=== PATIENT | male | born 1960 | race Caucasian/White ===

== ENCOUNTER 2024-01-21 14:38 | Outpatient (AMB) | payer OTHER, SELFPAY ==
--- NOTE | 2024-01-21 15:12 | MHC.PC.OV ---
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 All meds but the Eliquis are needing refilled. 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 Mary Longoria Last office visit/CPE: 6 mos. CPE Almost a yr Acute issue(s): episode of a-fib and workup is still under way Cardiology at [facility] PMHx: PreDM, HTN, HLD, Kidney stones SurgHx: Renal Stents for renal stones. FHx: Dad: CAD [place]. Mom: Brain Aneurysm. Sister: Breast CA SocHx: Quit 30 yrs ago. EtOH 2 dr 2 x a week. MJ daily. 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 Cognitive needs: No Hearing needs: No Vision needs: Yes (prescription glasses) Questionnaire Thrive Questionnaire Date Thrive assessed: 01/21/24 I am a: Patient What is your living situation today?: I have a steady place to live Within the past 12 months, did the food you bought not last and you didn't have the money to get more?: Never true Within the past 12 months, did you worry whether your food would run out before you got money to buy more?: Never true Do you have trouble paying for medicines?: No Do you have trouble getting transportation to medical appointments?: No Do you have trouble paying your heating and electricity bill?: No Do you have trouble taking care of your child, family member or friend?: No Do you have trouble with day-to-day activities such as bathing, preparing meals, shopping, managing finances, etc.?: No Are you currently unemployed and looking for a job?: No Are you interested in more education?: No THRIVE Score: 0 AUDIT C Alcohol Use Questionnaire (AUDIT-C) 1. How often do you have a drink containing alcohol?: 2-3 times a week 2. How many drinks containing alcohol do you have on a typical day when you are drinking?: 1 or 2 3. How often do you have six or more drinks on one occasion?: Never Total Score: 3 KATE-7 AMB Questionnaire KATE-7 Date KATE - 7 assessed: 01/21/24 Feeling nervous, anxious, or on edge: 0 = Not at all Not being able to stop or control worryin = Not at all Worrying too much about different things: 0 = Not at all Trouble relaxin = Not at all Being so restless that it is hard to sit still: 0 = Not at all Becoming easily annoyed or irritable: 0 = Not at all Feeling afraid as if something awful might happen: 0 = Not at all Total KATE-7 score (0-4 normal; 5-9 mild; 10-14 moderate; 15-21 severe): 0 Source: Developed by Drs. Meir Barrios, Guillermina March, Sunil Mendez and colleagues, with an educational dat from [employer]. Review of Systems Const Denies chills, Denies fatigue, Denies fever(s), Denies headache(s) and Denies weakness ENT Denies dizziness and Denies headache(s) Card Denies chest pain, Denies lightheadedness, Denies dyspnea and Denies other (Palpitations) Resp Denies cough, Denies dyspnea, Denies wheezing and Denies other ( shortness of breath) Musc Denies numbness and Denies tingling Neuro Denies dizziness, Denies headache(s), Denies numbness, Denies tingling, Denies paresthesias and Denies weakness Psych Denies anxiety and Denies depression Endo Denies fatigue Aller/Immun Denies wheezing Physical exam (Primary Care) Vital Signs: Last Vital Signs Pulse 69 01/21/24 15:14 BP 130/72 01/21/24 15:14 Pulse Ox 97 01/21/24 15:14 Oxygen Delivery Method Room Air 01/21/24 15:14 BMI result Body Mass Index 37.8 Tobacco/Smoking Status: Tobacco use Status Tobacco use date assessed 01/21/24 01/21/24 15:37 Patient Tobacco Use Status Former Tobacco user 01/21/24 15:37 e-Cigarette/Vaping Use Never Used 01/21/24 15:37 Thrive Assessment: Date of Thrive Assessment Date Thrive assessed 01/21/24 01/21/24 15:37 Const General: no acute distress and well developed Nutritional Appearance: well nourished Orientation/consciousness: patient oriented x3 HENMT Head: Yes normocephalic and Yes atraumatic Eyes General: appearance normal, both eyes and all related structures Pupils: Equal, round and reactive pupils present EOM: EOMs intact bilaterally Resp Effort & Inspection: normal respiratory effort Auscultation: clear to auscultation bilaterally Cardio Rate: regular rate Rhythm: regular rhythm Heart sounds: S1 normal heart sound present, S2 normal heart sound present, no gallops, no murmurs and no rubs Neuro General: patient oriented x3 and gait normal Cranial nerves: Yes Equal, round and reactive pupils present Psych Affect: normal affect Assessment and Plan Assessment & Plan (1) Hypertension: Code(s): I10 - Essential (primary) hypertension Plan: Blood?pressure?is?controlled.??Goal?is?less?than?140/90 Continue?current?medication?regimen (2) Atrial fibrillation: Code(s): I48.91 - Unspecified atrial fibrillation Plan: Episode?of?atrial?fibrillation.??Patient?just?turned?in?his?Holter?monitor?test?with?his?spray painter?at?[facility]?yesterday. Results?pending Currently?anticoagulated?with?Eliquis?but?he?is?waiting?to?see?if?he?needs?to?remain?on?this. (3) Pre-diabetes: Code(s): R73.03 - Prediabetes Plan: Check?A1c?with?labs (4) High cholesterol: Code(s): E78.00 - Pure hypercholesterolemia, unspecified Plan: Check?lipid Continue?pravastatin (5) Laboratory exam ordered as part of routine general medical examination: Code(s): Z00.00 - Encounter for general adult medical examination without abnormal findings Plan: Check?labs Orders: Orders Complete Blood Count Auto Diff Today Z00.00 - Encounter for general adult medical examination without abnormal findings Lipid Panel Today Z00.00 - Encounter for general adult medical examination without abnormal findings Microalbumin, Random (w Creat) Today I10 - Essential (primary) hypertension TSH reflex Free T4 Today Z00.00 - Encounter for general adult medical examination without abnormal findings Hemoglobin A1c Today R73.01 - Impaired fasting glucose Comprehensive [place]. Panel Fast Today Z00.00 - Encounter for general adult medical examination without abnormal findings Prostate Specific Antigen Scr Today Z12.5 - Encounter for screening for malignant neoplasm of prostate UA and rflx microscopic Today Z00.00 - Encounter for general adult medical examination without abnormal findings Medications: New pravastatin 80 mg PO DAILY 90 days 90 tabs 2RF amlodipine 10 mg PO DAILY 90 days 90 tabs 2RF lisinopril 40 mg PO DAILY 90 days 90 tabs 2RF omeprazole 20 mg PO DAILY 90 days 90 caps 2RF Coding Level of Care Code New Pt Level 3 (18227) Diagnoses Hypertension I10 Atrial fibrillation I48.91 Pre-diabetes R73.03 High cholesterol E78.00 Laboratory exam ordered as part of routine general medical examination Z00.00
[2024-01-21 15:14] VITALS: BP 130/72; PULSE 69; O2SAT 97; BMI 37.8
== END 2024-01-21 16:10 | disposition home or self-care (01) ==
PROVIDERS: PCP Family Medicine; Visit Provider Family Medicine
DX: I10 Essential (primary) hypertension (principal); I48.91 Unspecified atrial fibrillation; R73.03 Prediabetes; E78.00 Pure hypercholesterolemia, unspecified; Z00.00 Encounter for general adult medical examination without abnormal findings
CPT/HCPCS: 99203

== ENCOUNTER 2024-01-22 10:04 | Outpatient (REF) | payer SELFPAY ==
[2024-01-22 11:35] LABS: Appearance Urine Clear; Color Urine Dark Yellow; Glucose Urine UA Negative (Negative); Leukocyte Esterase Urine Trace (Negative); Nitrite Urine Negative (Negative); PH 5.5 (5.0-9.0); Specific Gravity - Urine 1.025 (1.005-1.025); UMIC TRIGGER UA YES; Urine Blood Trace (Negative); Urine Ketones Negative (Negative); Urine Protein 100 (2+) mg/dL (Neg-Trace)
[2024-01-22 11:40] LABS: Bacteria Urine None Seen (None Seen); Squamous Epithelial Cell Urine 0-2 /HPF (0-2); WBC Urine 0-5 /HPF (0-5)
[2024-01-22 11:50] LABS: MANUAL DIFF FLAG NO
[2024-01-22 12:06] LABS: Basophils Absolute Auto 0.1 X10*3/uL (0.0-0.2); Eosinophils Absolute Auto 0.3 X10*3/uL (0.0-0.4); Eosinophils Percent Auto 2.6 % (0-4); Hematocrit 41.5 % (42.0-52.0); Hemoglobin 13.8 g/dl (14.0-18.0); Imm Gran Abs Auto 0.04 X10*3/uL (0.00-0.03); Imm Gran Pct Auto 0.4 % (0.0-0.4); Lymphocytes Absolute Auto 1.9 X10*3/uL (1.2-4.9); Lymphocytes Percent Auto 18.7 % (20-40); Mean Corpuscular HGB Conc 33.3 g/dl (31.0-36.0); Mean Corpuscular Hemoglobin 28.4 pg (27.0-33.0); Mean Corpuscular Volume 85.4 fL (80.0-98.0); Mean Platelet Volume 11.5 fL (9.4-12.4); Monocytes Absolute Auto 0.8 X10*3/uL (0.1-1.2); Monocytes Percent Auto 7.8 % (2-11); Neutrophils Absolute Auto 7.2 x10*3/uL (2.0-8.3); Neutrophils Percent Auto 69.5 % (45-73); Platelet Count 306 X10*3/uL (160-400); Red Blood Count 4.86 X10*6/uL (4.60-5.80); Red Cell Distribution Width 12.5 % (11.0-16.0); White Blood Count 10.3 X10*3/uL (4.8-10.8)
[2024-01-22 12:23] LABS: Estimated Average Glucose 151 mg/dL; Hemoglobin A1c % 6.9 % (<6.0)
[2024-01-22 12:31] LABS: Prostate Specific Antigen Scr 0.32 ng/mL (<0.05-4.0)
[2024-01-22 12:32] LABS: Creatinine Urine 378.62 mg/dL; Microalbum/Creatinine Ratio Ur 123.6 ug/mg cr (<30)
[2024-01-22 12:47] LABS: Alanine Aminotransferase 48 U/L (0-40); Albumin Level 4.8 g/dL (3.5-5.0); Alkaline Phosphatase 61 U/L (39-117); Anion Gap 18 (12-20); Aspartate Amino Transferase 34 U/L (5-37); Bilirubin Total 0.7 mg/dL (0.0-1.0); Blood Urea Nitrogen 25 mg/dL (9-16); Calcium 9.9 mg/dL (8.4-10.2); Carbon Dioxide 23 mmol/L (22-29); Chloride 103 mmol/L (96-108); Cholesterol 188 mg/dL (<200); Estimated Glomerular Filt Rate > 60; Glucose Fasting 124 mg/dL (60-99); HDL Cholesterol 40 mg/dL (>40); LDL Cholesterol Calculated 87 mg/dL (<100); Potassium 4.1 mmol/L (3.3-5.1); Sodium 140 mmol/L (135-145); Total Protein 8.3 g/dL (6.5-8.0); Triglycerides 309 mg/dL (<150)
[2024-01-22 12:56] LABS: TSH reflex Free T4 0.71 uIU/mL (0.32-4.0)
== END 2024-01-22 10:05 | disposition home or self-care (01) ==
LOC: HO.WFDLDS 10:04
PROVIDERS: Visit Provider Family Medicine
DX: Z00.00 Encounter for general adult medical examination without abnormal findings (principal); Z12.5 Encounter for screening for malignant neoplasm of prostate; R73.01 Impaired fasting glucose; I10 Essential (primary) hypertension
CPT/HCPCS: 36415; 80053; 80061; 81001; 82043; 82570; 83036; 84153; 84443; 85025

== ENCOUNTER 2024-03-17 13:38 | Outpatient (AMB) | payer OTHER, SELFPAY ==
--- NOTE | 2024-03-17 14:13 | A.OFFPC_ITS ---
Vital Signs 03/17/24 14:18 Height 5 ft 6.34 in Weight 228 lb BMI 36.4 BP 108/72 Blood Pressure Location Rt brachial Position Sitting Respiration 16 Pulse 77 Pulse Source Pulse Oximeter Temp 98.1 F Temp Source Oral Pulse Oximetry (%) 96 Oxygen Delivery Method Room Air Intake Visit Reasons: CPE with f/u labs and health maint. 30 mins Intake Note: Physical. Lab results. 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 Requesting medication for ED, believes he was taking Viagra. Allergies No Known Allergies Allergy (Verified 03/17/24 14:13) Medication List - Last Reconciled 03/17/24 by Raúl Valero MD amlodipine 10 mg PO DAILY 90 days lisinopril 40 mg PO DAILY 90 days omeprazole 20 mg PO DAILY 90 days pravastatin 80 mg PO DAILY 90 days Tobacco use date assessed: 03/17/24 Dental Screening Dental Screen Date: 03/17/24 Did you have a dental visit in the last 12 months?: Yes Did you have a dental problem in the last 6 months where you did not have access to dental care?: No Was dental information given to patient?: Patient has dentist HPI CPE with f/u labs and health maint. 30 mins HPI Details 63 y/o male presents for a CPE with f/u labs and health maintenance. Labs were drawn 01/22/24. Reviewed labs with pt. Mild anemia. He denies any blood in stools/nose bleeds. Elevated fasting glucose of 124 and A1c 6.9% - diabetes range. Elevated ALT of 48. Triglycerides 309. TC 188. LDL 87. HDL 40. He is on pravastatin 80mg daily. Blood pressure today 108/72, 77p. He is on amlodipine 10mg, lisinopril 40mg daily. 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 1. Little interest or pleasure in doing things: not at all 2. Feeling down, depressed, or hopeless: not at all 3. Trouble falling or staying asleep, or sleeping too much: several days 4. Feeling tired or having little energy: nearly every day 5. Poor appetite or overeating: several days 6. Feeling bad about yourself - or that you are a failure or have let yourself or your family down: not at all 7. Trouble concentrating on things, such as reading the newspaper or watching television: not at all 8. Moving or speaking so slowly that other people could have noticed. Or the opposite - being so fidgety or restless that you have been moving around a lot more than usual: not at all 9. Thoughts that you would be better off or of hurting yourself in some way: not at all Total score: 5 Depression Screening Interpretation: Positive Depression Screening Done: Yes [id number] - PHQ-9 Billing: Yes Source: Developed by Drs. Meir Barrios, Guillermina March, Sunil Mendez and colleagues, with an educational dat from [employer]. Thrive Questionnaire Date Thrive assessed: 01/21/24 AUDIT C Alcohol Use Questionnaire (AUDIT-C) 1. How often do you have a drink containing alcohol?: 2-3 times a week 2. How many drinks containing alcohol do you have on a typical day when you are drinking?: 1 or 2 3. How often do you have six or more drinks on one occasion?: Never Total Score: 3 KATE-7 AMB Questionnaire KATE-7 Date KATE - 7 assessed: 03/17/24 Feeling nervous, anxious, or on edge: 0 = Not at all Not being able to stop or control worryin = Not at all Worrying too much about different things: 0 = Not at all Trouble relaxin = Not at all Being so restless that it is hard to sit still: 0 = Not at all Becoming easily annoyed or irritable: 1 = Several days Feeling afraid as if something awful might happen: 0 = Not at all Total KATE-7 score (0-4 normal; 5-9 mild; 10-14 moderate; 15-21 severe): 1 Source: Developed by Drs. Meir LGuillermina Bernstein Kurt Kroenke and colleagues, with an educational dat from [employer]. KATE-7 Assessment Billing KATE-7 Assessment Tool: KATE-7 Assessment 53379 Physical exam (Primary Care) Vital Signs: Last Vital Signs Temp 98.1 F 03/17/24 14:18 Pulse 77 03/17/24 14:18 Resp 16 03/17/24 14:18 BP 108/72 03/17/24 14:18 Pulse Ox 96 03/17/24 14:18 Oxygen Delivery Method Room Air 03/17/24 14:18 BMI result Body Mass Index 36.4 Tobacco/Smoking Status: Tobacco use Status Tobacco use date assessed 03/17/24 03/17/24 14:21 Patient Tobacco Use Status Former Tobacco user 03/17/24 14:21 e-Cigarette/Vaping Use Never Used 03/17/24 14:21 PHQ-9: PHQ-9 Score PHQ-9: Total score 5 03/17/24 14:35 Depression Screening Interpretation: Positive Thrive Assessment: Date of Thrive Assessment Date Thrive assessed 01/21/24 03/17/24 14:21 Assessment and Plan Assessment & Plan (1) Adult general medical exam: Code(s): Z00.00 - Encounter for general adult medical examination without abnormal findings Plan: 63-year-old?male?presents?for?physical?exam (2) Diabetes: Code(s): E11.9 - Type 2 diabetes mellitus without complications Plan: A1c?6.9%.??Patient?also?has?significant?microalbuminuria Will?start?metformin Referred?to?nurse?navigator?for?diabetic?teaching Referred?to?ophthalmology?for?diabetic?retinal?exam (3) Mild anemia: Code(s): D64.9 - Anemia, unspecified Plan: Mild.??Repeat?CBC?with?next?blood?draw (4) Hypertension: Code(s): I10 - Essential (primary) hypertension Plan: Blood?pressure?is?controlled.??Goal?is?less?than?140/90 Continue?current?medication (5) Hyperlipidemia: Code(s): E78.5 - Hyperlipidemia, unspecified Plan: Triglycerides?are?high?and?likely?secondary?to?high?blood?sugars Should?improve?with?lifestyle?changes?and?control?of?blood?sugar (6) Erectile dysfunction: Code(s): N52.9 - Male erectile dysfunction, unspecified Plan: Patient?has?used?sildenafil?in?the?past Still?has?some?at?home Will?put?on?med?list?and?he?call?for?refills (7) Microalbuminuria: Code(s): R80.9 - Proteinuria, unspecified Plan: He?is?on?lisinopril Will?work?at?better?blood?sugar?control?with?metformin?and?lifestyle?markos nges;?diabetic?teaching (8) Elevated liver enzymes: Code(s): R74.8 - Abnormal levels of other serum enzymes Plan: Will?repeat?with?next?blood?draw (9) Screening for colon cancer: Code(s): Z12.11 - Encounter for screening for malignant neoplasm of colon Plan: Patient?thinks?he?had?a?colonoscopy?at?[facility]?about?3?years?ago.??Will?request? report (10) Screening for prostate cancer: Code(s): Z12.5 - Encounter for screening for malignant neoplasm of prostate Plan: PSA?was?within?normal?range Continue?annual?screening Orders: Orders Lipid Panel Today E78.5 - Hyperlipidemia, unspecified, Z00.00 - Encounter for general adult medical examination without abnormal findings Hemoglobin A1c Today E11.9 - Type 2 diabetes mellitus without complications, R73.01 - Impaired fasting glucose Comprehensive [place]. Panel Fast Today E11.9 - Type 2 diabetes mellitus without complications, Z00.00 - Encounter for general adult medical examination without abnormal findings Microalbumin, Random (w Creat) Today I10 - Essential (primary) hypertension, R80.9 - Proteinuria, unspecified Complete Blood Count Auto Diff Today D64.9 - Anemia, unspecified, Z00.00 - Encounter for general adult medical examination without abnormal findings Referrals Nurse Navigator Referral E11.9 - Type 2 diabetes mellitus without complications Ophthalmology Referral E11.9 - Type 2 diabetes mellitus without complications Medications: New sildenafil administer 30 minutes to 4 hours before activity 50 mg PO DAILY PRN 10 tabs 2RF sexual activity metformin 250 mg (1/2 x 500 mg) PO BID 90 days 90 tabs 3RF D64.9 - Anemia, unspecified Coding Level of Care Code Est Pt Level 3 (00918) Est Pt Prev Care 40-64y(30155) Diagnoses Adult general medical exam Z00.00 Diabetes E11.9 Mild anemia D64.9 Hypertension I10 Hyperlipidemia E78.5 Erectile dysfunction N52.9 Microalbuminuria R80.9 Elevated liver enzymes R74.8 Screening for colon cancer Z12.11 Screening for prostate cancer Z12.5 Additional Codes KATE-7 Assessment Billing - KATE-7 Assessment Tool: KATE-7 Assessment [id number] ([id number])
[2024-03-17 14:18] VITALS: BP 108/72; PULSE 77; RESP 16; TEMP 36.7; O2SAT 96; BMI 36.4
== END 2024-03-17 15:10 | disposition home or self-care (01) ==
PROVIDERS: PCP Family Medicine; Visit Provider Family Medicine
DX: Z00.00 Encounter for general adult medical examination without abnormal findings (principal); E11.69 Type 2 diabetes mellitus with other specified complication; D64.9 Anemia, unspecified; I10 Essential (primary) hypertension; E78.5 Hyperlipidemia, unspecified; N52.9 Male erectile dysfunction, unspecified; R80.9 Proteinuria, unspecified; R74.8 Abnormal levels of other serum enzymes
CPT/HCPCS: 99213; 99396

== ENCOUNTER 2024-05-29 09:10 | Outpatient (REF) | payer OTHER, SELFPAY ==
[2024-05-29 11:08] LABS: MANUAL DIFF FLAG NO
[2024-05-29 11:16] LABS: Basophils Absolute Auto 0.1 X10*3/uL (0.0-0.2); Basophils Percent Auto 1.1 % (0-2); Eosinophils Absolute Auto 0.3 X10*3/uL (0.0-0.4); Hematocrit 37.2 % (42.0-52.0); Hemoglobin 12.4 g/dl (14.0-18.0); Imm Gran Abs Auto 0.03 X10*3/uL (0.00-0.03); Imm Gran Pct Auto 0.4 % (0.0-0.4); Lymphocytes Absolute Auto 1.7 X10*3/uL (1.2-4.9); Lymphocytes Percent Auto 20.8 % (20-40); Mean Corpuscular HGB Conc 33.3 g/dl (31.0-36.0); Mean Corpuscular Volume 86.9 fL (80.0-98.0); Mean Platelet Volume 11.3 fL (9.4-12.4); Monocytes Absolute Auto 0.6 X10*3/uL (0.1-1.2); Monocytes Percent Auto 7.8 % (2-11); Neutrophils Absolute Auto 5.3 x10*3/uL (2.0-8.3); Neutrophils Percent Auto 65.9 % (45-73); Platelet Count 262 X10*3/uL (160-400); Red Blood Count 4.28 X10*6/uL (4.60-5.80); Red Cell Distribution Width 12.6 % (11.0-16.0); White Blood Count 8.1 X10*3/uL (4.8-10.8)
[2024-05-29 11:33] LABS: Estimated Average Glucose 140 mg/dL; Hemoglobin A1c % 6.5 % (<6.0)
[2024-05-29 11:50] LABS: Alanine Aminotransferase 37 U/L (0-40); Albumin Level 4.5 g/dL (3.5-5.0); Alkaline Phosphatase 52 U/L (39-117); Anion Gap 12 (12-20); Aspartate Amino Transferase 22 U/L (5-37); Bilirubin Total 0.5 mg/dL (0.0-1.0); Blood Urea Nitrogen 16 mg/dL (9-16); Calcium 9.6 mg/dL (8.4-10.2); Carbon Dioxide 25 mmol/L (22-29); Chloride 108 mmol/L (96-108); Cholesterol 153 mg/dL (<200); Estimated Glomerular Filt Rate > 60; Glucose Fasting 119 mg/dL (60-99); HDL Cholesterol 37 mg/dL (>40); LDL Cholesterol Calculated 78 mg/dL (<100); Sodium 141 mmol/L (135-145); Total Protein 7.6 g/dL (6.5-8.0); Triglycerides 192 mg/dL (<150)
[2024-05-29 14:26] LABS: Appearance Urine Clear; Color Urine Yellow; Glucose Urine UA Negative (Negative); Leukocyte Esterase Urine Negative (Negative); Nitrite Urine Negative (Negative); Specific Gravity - Urine 1.015 (1.005-1.025); UMIC TRIGGER UA YES; Urine Blood Negative (Negative); Urine Ketones Negative (Negative); Urine Protein 30 (1+) mg/dL (Neg-Trace)
[2024-05-29 14:32] LABS: Bacteria Urine None Seen (None Seen); Hyaline Casts Urine 0-2 /LPF (0-2); RBC Urine 0-2 /HPF (0-2); Squamous Epithelial Cell Urine 0-2 /HPF (0-2); WBC Urine 0-5 /HPF (0-5)
[2024-05-29 14:51] LABS: Creatinine Urine 98.79 mg/dL; Microalbum/Creatinine Ratio Ur 134.6 ug/mg cr (<30)
== END 2024-05-29 09:11 | disposition home or self-care (01) ==
LOC: HO.WFDLDS 09:10
PROVIDERS: Visit Provider Family Medicine
DX: Z00.00 Encounter for general adult medical examination without abnormal findings (principal); D64.9 Anemia, unspecified; E11.9 Type 2 diabetes mellitus without complications; I10 Essential (primary) hypertension; R80.9 Proteinuria, unspecified; E78.5 Hyperlipidemia, unspecified
CPT/HCPCS: 36415; 80053; 80061; 81001; 82043; 82570; 83036; 85025

== ENCOUNTER 2024-06-18 14:18 | Outpatient (AMB) | payer OTHER, SELFPAY ==
--- NOTE | 2024-06-18 14:47 | A.OFFPC_ITS ---
Vital Signs 06/18/24 14:50 Height 5 ft 6 in Weight 228 lb BMI 36.8 BP 114/59 L Blood Pressure Location Rt brachial Position Sitting Respiration 16 Pulse 69 Pulse Source Pulse Oximeter Temp 97.3 F Temp Source Tympanic Pulse Oximetry (%) 95 Oxygen Delivery Method Room Air Intake Visit Reasons: f/u diabetes, labs Intake Note: follow up on DM and labs Allergies No Known Allergies Allergy (Verified 06/18/24 14:48) Tobacco use date assessed: 03/17/24 Dental Screening Dental Screen Date: 03/17/24 HPI f/u diabetes, labs HPI Details 63 y/o male presents to f/u diabetes, la bs. Had started him on metformin last office visit in March. Labs drawn 05/29/24. Reviewed labs with pt. Ongoing mild anemia which worsened a bit from labs in January. Denies any frequent nose bleeds, blood in stools. A1c 6.5%. Triglycerides 192. TC 153. LDL 78. HDL low at 37. He is on pravastatin 80mg daily. Microalb/Creat Ratio 134.6 ug/mg. Blood pressure today 114/59. He is on amlodipine 10mg, lisinopril 40mg daily. HPI Comments History of Present Illness Details Documentation assistance for Raúl Valero MD, was provided by Shane Dupree, Packing Machine Inspector on 06/18/2024 at 3:08 PM EST. I, Dr. Valero, have read, observed, and verified documentation. 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 Meir Barrios, Guillermina March, Sunil Mendez and colleagues, with an educational dat from [employer]. Physical exam (Primary Care) Vital Signs: Last Vital Signs Temp 97.3 F 06/18/24 14:50 Pulse 69 06/18/24 14:50 Resp 16 06/18/24 14:50 BP 114/59 L 06/18/24 14:50 Pulse Ox 95 06/18/24 14:50 Oxygen Delivery Method Room Air 06/18/24 14:50 BMI result Body Mass Index 36.8 Tobacco/Smoking Status: Tobacco use Status Tobacco use date assessed 03/17/24 06/18/24 14:48 Patient Tobacco Use Status Former Tobacco user 06/18/24 14:48 e-Cigarette/Vaping Use Never Used 06/18/24 14:48 Thrive Assessment: Date of Thrive Assessment Date Thrive assessed 01/21/24 06/18/24 14:48 Assessment and Plan Assessment & Plan (1) Diabetes: Code(s): E11.9 - Type 2 diabetes mellitus without complications Plan: A1c?6.5%?is?improved. ?Goal?is?less?than?7.0% Continue?current?medication Encouraged?diabetic?diet,?weight?loss?and?exercise (2) Mild anemia: Code(s): D64.9 - Anemia, unspecified Plan: Mild?anemia No?blood?in?stools?or?bleeding Will?recheck?CBC?as?well?as?iron?and?B12?studies (3) Hyperlipidemia: Code(s): E78.5 - Hyperlipidemia, unspecified Plan: Lipids?improving Encouraged?diet?low?in?saturated?fats?and?cholesterol Continue?statin Will?follow (4) Elevated liver enzymes: Code(s): R74.8 - Abnormal levels of other serum enzymes Plan: Liver?enzymes?both?within?normal?range?now Encouraged?good?hydration Encouraged?weight?loss (5) Microalbuminuria: Code(s): R80.9 - Proteinuria, unspecified Plan: Still?elevated Continue?to?control?blood?sugar?cholesterol?and?blood?pressure Continue?lisinopril Will?follow Coding Level of Care Code Est Pt Level 4 (25632) Diagnoses Diabetes E11.9 Mild anemia D64.9 Hyperlipidemia E78.5 Elevated liver enzymes R74.8 Microalbuminuria R80.9
[2024-06-18 14:50] VITALS: BP 114/59; PULSE 69; RESP 16; TEMP 36.3; O2SAT 95; BMI 36.8
== END 2024-06-18 15:21 | disposition home or self-care (01) ==
PROVIDERS: PCP Family Medicine; Visit Provider Family Medicine
DX: E11.9 Type 2 diabetes mellitus without complications (principal); D64.9 Anemia, unspecified; E78.5 Hyperlipidemia, unspecified; R74.8 Abnormal levels of other serum enzymes; R80.9 Proteinuria, unspecified
CPT/HCPCS: 99214

== ENCOUNTER 2024-08-24 08:50 | Outpatient (REF) | payer OTHER, SELFPAY ==
[2024-08-24 11:06] LABS: MANUAL DIFF FLAG NO
[2024-08-24 11:15] LABS: Appearance Urine Clear; Color Urine Yellow; Glucose Urine UA Negative (Negative); Leukocyte Esterase Urine Negative (Negative); Nitrite Urine Negative (Negative); PH 5.5 (5.0-9.0); Specific Gravity - Urine 1.015 (1.005-1.025); UMIC TRIGGER UA YES; Urine Blood Negative (Negative); Urine Ketones Negative (Negative); Urine Protein 30 (1+) mg/dL (Neg-Trace)
[2024-08-24 11:19] LABS: Basophils Absolute Auto 0.1 X10*3/uL (0.0-0.2); Basophils Percent Auto 1.1 % (0-2); Eosinophils Absolute Auto 0.3 X10*3/uL (0.0-0.4); Eosinophils Percent Auto 3.5 % (0-4); Hemoglobin 13.4 g/dl (14.0-18.0); Imm Gran Abs Auto 0.04 X10*3/uL (0.00-0.03); Imm Gran Pct Auto 0.5 % (0.0-0.4); Immature Retic Fraction 13.8 % (2.3-13.4); Lymphocytes Absolute Auto 1.8 X10*3/uL (1.2-4.9); Lymphocytes Percent Auto 21.6 % (20-40); Mean Corpuscular HGB Conc 33.5 g/dl (31.0-36.0); Mean Corpuscular Hemoglobin 28.9 pg (27.0-33.0); Mean Corpuscular Volume 86.4 fL (80.0-98.0); Mean Platelet Volume 11.4 fL (9.4-12.4); Monocytes Absolute Auto 0.6 X10*3/uL (0.1-1.2); Monocytes Percent Auto 7.5 % (2-11); Neutrophils Absolute Auto 5.4 x10*3/uL (2.0-8.3); Neutrophils Percent Auto 65.8 % (45-73); Platelet Count 265 X10*3/uL (160-400); Red Blood Count 4.63 X10*6/uL (4.60-5.80); Red Cell Distribution Width 12.8 % (11.0-16.0); Retic HGB Equivalent 32.4 pg (30.0-35.0); Reticulocyte Percent 1.3 % (0.5-1.8); White Blood Count 8.2 X10*3/uL (4.8-10.8)
[2024-08-24 11:26] LABS: Bacteria Urine None Seen (None Seen); Hyaline Casts Urine 0-2 /LPF (0-2); RBC Urine 0-2 /HPF (0-2); Squamous Epithelial Cell Urine 0-2 /HPF (0-2); WBC Urine 0-5 /HPF (0-5)
[2024-08-24 11:35] LABS: Alanine Aminotransferase 46 U/L (0-40); Albumin Level 4.4 g/dL (3.5-5.0); Alkaline Phosphatase 51 U/L (39-117); Anion Gap 14 (12-20); Aspartate Amino Transferase 26 U/L (5-37); Bilirubin Total 0.4 mg/dL (0.0-1.0); Blood Urea Nitrogen 17 mg/dL (9-16); Calcium 9.6 mg/dL (8.4-10.2); Carbon Dioxide 24 mmol/L (22-29); Chloride 107 mmol/L (96-108); Estimated Glomerular Filt Rate > 60; Glucose Fasting 117 mg/dL (60-99); Iron 60 mcg/dL (45-160); Percent Iron Saturation 17 % (15-50); Potassium 4.1 mmol/L (3.3-5.1); Sodium 141 mmol/L (135-145); Total Iron Binding Capacity 353 mcg/dL (228-428); Total Protein 7.5 g/dL (6.5-8.0); Unsaturated Iron Binding 293 ug/dL
[2024-08-24 11:38] LABS: Creatinine Urine 115.24 mg/dL; Microalbum/Creatinine Ratio Ur 176.1 ug/mg cr (<30)
[2024-08-24 12:05] LABS: Folate 13.7 ng/mL (> or = 4.0); Vitamin B12 1069 pg/mL (200-900)
== END 2024-08-24 08:51 | disposition home or self-care (01) ==
LOC: HO.WFDLDS 08:50
PROVIDERS: Visit Provider Family Medicine
DX: Z00.00 Encounter for general adult medical examination without abnormal findings (principal); D64.9 Anemia, unspecified; E53.8 Deficiency of other specified B group vitamins; I10 Essential (primary) hypertension; R80.9 Proteinuria, unspecified; E11.9 Type 2 diabetes mellitus without complications; Z23 Encounter for immunization
CPT/HCPCS: 36415; 80053; 81001; 82043; 82570; 82607; 82746; 83540; 85025; 85045; 90471; 90656

== ENCOUNTER 2024-08-24 09:02 | Outpatient (AMB) | payer OTHER, SELFPAY ==
--- NOTE | 2024-08-24 09:27 | AM.OFFVISNUR ---
Intake Visit Reasons: Flu shot Allergies No Known Allergies Allergy (Verified 06/18/24 14:48) Office Procedures Flu Questionnaire Does the patient have a severe egg allergy?: No Does the patient have severe life threatening allergies?: No Does the patient have a fever or illness today?: No Has the patient ever had Guillain-[place] Syndrome?: No Has the patient ever had any past reaction to a flu shot?: No Assessment & Plan Assessment & Plan Orders: Orders Influenza [id number] Immunization Today Z23 - Encounter for immunization Medications: New Fluarix Triv [id number] (PF) (flu vacc [id number] 6mos up(PF)) 0.5 mL IM ONCE 0.5 mL 0RF NS Z23 - Encounter for immunization
== END 2024-08-24 11:28 | disposition home or self-care (01) ==
LOC: HO.HMCFM 09:02
PROVIDERS: PCP Family Medicine; Visit Provider Family Medicine
DX: Z23 Encounter for immunization (principal)

== ENCOUNTER 2024-09-17 14:10 | Outpatient (AMB) | payer OTHER, SELFPAY ==
--- NOTE | 2024-09-17 14:21 | MHC.PC.OV ---
Vital Signs 09/17/24 14:30 Height 5 ft 6 in Weight 233 lb 8 oz BMI 37.7 BP 116/60 Blood Pressure Location Rt brachial Position Sitting Respiration 14 Pulse 75 Pulse Source Pulse Oximeter Temp 98.3 F Temp Source Oral Pulse Oximetry (%) 95 Oxygen Delivery Method Room Air Intake Visit Reasons: f/u diabetes, hypertension, labs Allergies No Known Allergies Allergy (Verified 06/18/24 14:48) Tobacco use date assessed: 03/17/24 Dental Screening Dental Screen Date: 03/17/24 HPI f/u diabetes, hypertension, labs HPI Details 63 y/o male presents to f/u diabetes, hypertension, labs. Labs drawn 08/24/24. Reviewed labs with pt. Normocytic anemia. Fasting glucose of 117. AST 26. ALT 46. Vitamin B12 is high at 1069. A1c today 09/17/24 is HPI Comments History of Present Illness Details Documentation assistance for Raúl Valero MD, was provided by Shane Dupree,? [employer] on 09/17/2024 at 2:43 PM EST. I, Dr. Valero, have read, observed, and verified documentation. 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 1. Little interest or pleasure in doing things: not at all Source: Developed by Drs. Meir Barrios, Guillermina March, Sunil Mendez and colleagues, with an educational dat from [employer]. Thrive Questionnaire Date Thrive assessed: 09/14/24 I am a: Patient What is your living situation today?: I have a steady place to live Within the past 12 months, did the food you bought not last and you didn't have the money to get more?: Never true Within the past 12 months, did you worry whether your food would run out before you got money to buy more?: Never true Do you have trouble paying for medicines?: No Do you have trouble getting transportation to medical appointments?: No Do you have trouble paying your heating and electricity bill?: No Do you have trouble taking care of your child, family member or friend?: No Do you have trouble with day-to-day activities such as bathing, preparing meals, shopping, managing finances, etc.?: No Are you currently unemployed and looking for a job?: No Are you interested in more education?: No Please select the resources that you would like help with: None Currently or been in a relationship where the following occur: No concerns reported THRIVE Score: 0 AUDIT C Alcohol Use Questionnaire (AUDIT-C) 1. How often do you have a drink containing alcohol?: 2-3 times a week 2. How many drinks containing alcohol do you have on a typical day when you are drinking?: 1 or 2 3. How often do you have six or more drinks on one occasion?: Never Total Score: 3 KATE-7 AMB Questionnaire KATE-7 Date KATE - 7 assessed: 03/17/24 Feeling nervous, anxious, or on edge: 0 = Not at all Not being able to stop or control worryin = Not at all Worrying too much about different things: 0 = Not at all Trouble relaxin = Not at all Being so restless that it is hard to sit still: 0 = Not at all Becoming easily annoyed or irritable: 0 = Not at all Feeling afraid as if something awful might happen: 0 = Not at all Total KATE-7 score (0-4 normal; 5-9 mild; 10-14 moderate; 15-21 severe): 0 Source: Developed by Drs. Meir Barrios, Guillermina March, Sunil Mendez and colleagues, with an educational dat from [employer]. Review of Systems Const Denies chills, Denies fatigue, Denies fever(s), Denies headache(s) and Denies weakness ENT Denies dizziness and Denies headache(s) Card Denies dyspnea Resp Denies cough, Denies dyspnea, Denies wheezing and Denies other (shortness of breath) Musc Denies numbness and Denies tingling Neuro Denies dizziness, Denies headache(s), Denies numbness, Denies tingling and Denies weakness Psych Denies anxiety and Denies depression Endo Denies fatigue Aller/Immun Denies wheezing Physical exam (Primary Care) Vital Signs: Last Vital Signs Temp 98.3 F 09/17/24 14:30 Pulse 75 09/17/24 14:30 Resp 14 09/17/24 14:30 BP 116/60 09/17/24 14:30 Pulse Ox 95 09/17/24 14:30 Oxygen Delivery Method Room Air 09/17/24 14:30 BMI result Body Mass Index 37.7 Tobacco/Smoking Status: Tobacco use Status Tobacco use date assessed 03/17/24 09/17/24 14:22 Patient Tobacco Use Status Former Tobacco user 09/17/24 14:22 e-Cigarette/Vaping Use Never Used 09/17/24 14:22 Thrive Assessment: Date of Thrive Assessment Date Thrive assessed 09/14/24 09/17/24 14:22 Currently or been in a relationship where the following occur: No concerns reported Const General: well developed; No acute distress Nutritional Appearance: well nourished Orientation/consciousness: patient oriented x3 HENMT Head: Yes normocephalic and Yes atraumatic Eyes General: appearance normal, both eyes and all related structures Pupils: Equal, round and reactive pupils present EOM: EOMs intact bilaterally Resp Effort & Inspection: normal respiratory effort Neuro General: patient oriented x3 and gait normal Cranial nerves: Yes Equal, round and reactive pupils present Psych Affect: normal affect Coding Level of Care Code Est Pt Level 4 (09822) Diagnoses Diabetes E11.9 Hypertension I10 Elevated liver enzymes R74.8 Normocytic anemia D64.9 Microalbuminuria R80.9 Assessment & Plan Assessment & Plan (1) Diabetes: Code(s): E11.9 - Type 2 diabetes mellitus without complications Category: Medical Plan: A1c?climbed?from?6.5%?to?7.0%.??Goal?is?less?than?7.0% Concurrently,?his?microalbumin?creatinine?ratio?has?increased. ?May?benefit?from?adding?Jardiance Continue?metformin?and?add?Jardiance Work?at?diet?low?in?sugars?and?starches (2) Hypertension: Code(s): I10 - Essential (primary) hypertension Category: Medical Plan: Blood?pressure?appears?well?controlled.??Goal?is?less?than?130/80?due?to?microalbuminuria Continue?current?medication (3) Elevated liver enzymes: Code(s): R74.8 - Abnormal levels of other serum enzymes Category: Medical Plan: Mild?elevation?in?fluctuations Encouraged?weight?loss?and?good?hydration Will?recheck?at?next?lab?draw (4) Normocytic anemia: Code(s): D64.9 - Anemia, unspecified Category: Medical Plan: Iron?levels?are?within?normal?limits B12?is?not low This?appears?to?be?improving Will?continue?follow (5) Microalbuminuria: Code(s): R80.9 - Proteinuria, unspecified Category: Medical Plan: Worsening?microalbuminuria?despite?lisinopril. Blood?pressure?is?well?controlled.??Blood?sugar?control?has?worsened?and?I?adding?Jardiance?to?improve?blood?sugar?and?also?for?renal?protective?properties Will?continue?to?follow Orders: Orders Complete Blood Count Auto Diff Today D64.9 - Anemia, unspecified, Z00.00 - Encounter for general adult medical examination without abnormal findings Comprehensive Met. Panel Today R74.8 - Abnormal levels of other serum enzymes Microalbumin, Random (w Creat) Today I10 - Essential (primary) hypertension, R80.9 - Proteinuria, unspecified Hemoglobin A1c Today E11.9 - Type 2 diabetes mellitus without complications, R73.01 - Impaired fasting glucose Medications: New empagliflozin (Jardiance) 10 mg PO QAM 90 days 90 tabs 2RF Refilled lisinopril 40 mg PO DAILY 90 days 90 tabs 2RF omeprazole 20 mg PO DAILY 90 days 90 caps 2RF pravastatin 80 mg PO DAILY 90 days 90 tabs 2RF amlodipine 10 mg PO DAILY 90 days 90 tabs 2RF
[2024-09-17 14:30] VITALS: BP 116/60; PULSE 75; RESP 14; TEMP 36.8; O2SAT 95; BMI 37.7
== END 2024-09-17 15:07 | disposition home or self-care (01) ==
PROVIDERS: PCP Family Medicine; Visit Provider Family Medicine
DX: E11.9 Type 2 diabetes mellitus without complications (principal); I10 Essential (primary) hypertension; R74.8 Abnormal levels of other serum enzymes; D64.9 Anemia, unspecified; R80.9 Proteinuria, unspecified

== ENCOUNTER 2024-12-04 09:02 | Outpatient (REF) | payer OTHER, SELFPAY ==
[2024-12-04 11:08] LABS: MANUAL DIFF FLAG NO
[2024-12-04 11:11] LABS: Basophils Absolute Auto 0.1 X10*3/uL (0.0-0.2); Basophils Percent Auto 0.7 % (0-2); Eosinophils Absolute Auto 0.3 X10*3/uL (0.0-0.4); Eosinophils Percent Auto 2.8 % (0-4); Hematocrit 40.5 % (42.0-52.0); Hemoglobin 13.3 g/dl (14.0-18.0); Imm Gran Abs Auto 0.05 X10*3/uL (0.00-0.03); Imm Gran Pct Auto 0.5 % (0.0-0.4); Lymphocytes Absolute Auto 1.6 X10*3/uL (1.2-4.9); Lymphocytes Percent Auto 16.8 % (20-40); Mean Corpuscular HGB Conc 32.8 g/dl (31.0-36.0); Mean Corpuscular Hemoglobin 28.9 pg (27.0-33.0); Mean Platelet Volume 11.3 fL (9.4-12.4); Monocytes Absolute Auto 0.5 X10*3/uL (0.1-1.2); Monocytes Percent Auto 5.6 % (2-11); Neutrophils Absolute Auto 7.1 x10*3/uL (2.0-8.3); Neutrophils Percent Auto 73.6 % (45-73); Platelet Count 278 X10*3/uL (160-400); Red Cell Distribution Width 13.1 % (11.0-16.0); White Blood Count 9.6 X10*3/uL (4.8-10.8)
[2024-12-04 11:22] LABS: Estimated Average Glucose 137 mg/dL; Hemoglobin A1C 159.2997 umol/L; Hemoglobin A1c % 6.4 % (<6.0); Total Hemoglobin (HGBA1C) 3437.3962 umol/L
[2024-12-04 11:22] LABS: Appearance Urine Clear; Color Urine Yellow; Glucose Urine UA >=1000 mg/dL (Negative); Leukocyte Esterase Urine Negative (Negative); Nitrite Urine Negative (Negative); PH 5.5 (5.0-9.0); Specific Gravity - Urine >= 1.030 (1.005-1.025); UMIC TRIGGER UA YES; Urine Blood Negative (Negative); Urine Ketones Negative (Negative); Urine Protein Trace mg/dL (Neg-Trace)
[2024-12-04 11:31] LABS: Alanine Aminotransferase 34 U/L (0-40); Albumin Level 4.3 g/dL (3.5-5.0); Alkaline Phosphatase 52 U/L (39-117); Anion Gap 12 (12-20); Aspartate Amino Transferase 22 U/L (5-37); Bilirubin Total 0.3 mg/dL (0.0-1.0); Blood Urea Nitrogen 17 mg/dL (9-16); Calcium 9.6 mg/dL (8.4-10.2); Carbon Dioxide 24 mmol/L (22-29); Chloride 110 mmol/L (96-108); Estimated Glomerular Filt Rate > 60; Glucose Random 121 mg/dL (60-115); Potassium 4.1 mmol/L (3.3-5.1); Sodium 142 mmol/L (135-145); Total Protein 7.7 g/dL (6.5-8.0)
[2024-12-04 11:34] LABS: Bacteria Urine None Seen (None Seen); Hyaline Casts Urine 0-2 /LPF (0-2); RBC Urine 0-2 /HPF (0-2); Squamous Epithelial Cell Urine 0-2 /HPF (0-2); WBC Urine 0-5 /HPF (0-5)
[2024-12-04 11:58] LABS: Creatinine Urine 66.09 mg/dL; Microalbum/Creatinine Ratio Ur 151.3 ug/mg cr (<30)
== END 2024-12-04 09:03 | disposition home or self-care (01) ==
LOC: HO.WFDLDS 09:02
PROVIDERS: Visit Provider Family Medicine
DX: Z00.00 Encounter for general adult medical examination without abnormal findings (principal); I10 Essential (primary) hypertension; R80.9 Proteinuria, unspecified; E11.9 Type 2 diabetes mellitus without complications; D64.9 Anemia, unspecified; R74.8 Abnormal levels of other serum enzymes
CPT/HCPCS: 36415; 80053; 81001; 82043; 82570; 83036; 85025

== ENCOUNTER 2024-12-17 14:25 | Outpatient (AMB) | payer OTHER, SELFPAY ==
--- NOTE | 2024-12-17 14:32 | A.OFFPC_ITS ---
Vital Signs 12/17/24 14:39 Height 5 ft 6 in Weight 216 lb 4 oz BMI 34.9 BP 120/68 Blood Pressure Location Rt brachial Position Sitting Respiration 14 Pulse 76 Pulse Source Pulse Oximeter Temp 99.1 F Temp Source Oral Pulse Oximetry (%) 95 Oxygen Delivery Method Room Air Intake Visit Reasons: f/u diabetes Intake Note: Patient is her to follow up on DM Clay Burner Required: No Allergies No Known Allergies Allergy (Verified 12/17/24 14:36) Tobacco use date assessed: 03/17/24 Dental Screening Dental Screen Date: 03/17/24 HPI f/u diabetes HPI Details Patient?presents?to?follow-up?diabetes,?hypertension?and?elevated?l iver?enzymes?as?well?as?elevated?microalbumin. He?has?been?taking?metformin?and?I?added?Jardiance?for?renal?protection?at?last? visit A1c?6.4%?which?is?down?from?6.5%?at?last?check Microalbumin?has?improved?as?well Liver?enzymes?now?in?normal?range Patient?is?still?having?issues?with?diarrhea?from?the?metformin?and?wants?to?sto p?this. 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 1. Little interest or pleasure in doing things: not at all 2. Feeling down, depressed, or hopeless: not at all 3. Trouble falling or staying asleep, or sleeping too much: not at all 4. Feeling tired or having little energy: not at all 5. Poor appetite or overeating: not at all 6. Feeling bad about yourself - or that you are a failure or have let yourself or your family down: not at all 7. Trouble concentrating on things, such as reading the newspaper or watching television: not at all 8. Moving or speaking so slowly that other people could have noticed. Or the opposite - being so fidgety or restless that you have been moving around a lot more than usual: not at all 9. Thoughts that you would be better off or of hurting yourself in some way: not at all Total score: 0 Source: Developed by Drs. Meir Barrios, Guillermina March, Sunil Mendez and colleagues, with an educational dat from [employer]. Thrive Questionnaire Date Thrive assessed: 12/12/24 I am a: Patient What is your living situation today?: I have a steady place to live Within the past 12 months, did the food you bought not last and you didn't have the money to get more?: Never true Within the past 12 months, did you worry whether your food would run out before you got money to buy more?: Never true Do you have trouble paying for medicines?: Yes Do you have trouble getting transportation to medical appointments?: No Do you have trouble paying your heating and electricity bill?: No Do you have trouble taking care of your child, family member or friend?: No Do you have trouble with day-to-day activities such as bathing, preparing meals, shopping, managing finances, etc.?: No Are you currently unemployed and looking for a job?: No Are you interested in more education?: No Please select the resources that you would like help with: Paying for medicine Currently or been in a relationship where the following occur: No concerns reported THRIVE Score: 0 AUDIT C Alcohol Use Questionnaire (AUDIT-C) 1. How often do you have a drink containing alcohol?: 2-3 times a week 2. How many drinks containing alcohol do you have on a typical day when you are drinking?: 1 or 2 3. How often do you have six or more drinks on one occasion?: Never Total Score: 3 KATE-7 AMB Questionnaire KATE-7 Date KATE - 7 assessed: 03/17/24 Feeling nervous, anxious, or on edge: 0 = Not at all Not being able to stop or control worryin = Not at all Worrying too much about different things: 0 = Not at all Trouble relaxin = Not at all Being so restless that it is hard to sit still: 0 = Not at all Becoming easily annoyed or irritable: 0 = Not at all Feeling afraid as if something awful might happen: 0 = Not at all Total KATE-7 score (0-4 normal; 5-9 mild; 10-14 moderate; 15-21 severe): 0 Source: Developed by Drs. Meir Barrios, Guillermina March, Sunil Mendez and colleagues, with an educational dat from [employer]. Review of Systems Const Denies chills, Denies fatigue, Denies fever(s), Denies headache(s) and Denies weakness ENT Denies dizziness and Denies headache(s) Card Denies chest pain, Denies lightheadedness, Denies dyspnea and Denies other (Palpitations) Resp Denies cough, Denies dyspnea, Denies wheezing and Denies other ( shortness of breath) GI Details: Diarrhea?which?he?attributes?to?metformin Musc Denies numbness and Denies tingling Neuro Denies dizziness, Denies headache(s), Denies numbness, Denies tingling, Denies paresthesias and Denies weakness Psych Denies anxiety and Denies depression Endo Denies fatigue Aller/Immun Denies wheezing Physical exam (Primary Care) Vital Signs: Last Vital Signs Temp 99.1 F 12/17/24 14:39 Pulse 76 12/17/24 14:39 Resp 14 12/17/24 14:39 BP 120/68 12/17/24 14:39 Pulse Ox 95 12/17/24 14:39 Oxygen Delivery Method Room Air 12/17/24 14:39 BMI result Body Mass Index 34.9 Tobacco/Smoking Status: Tobacco use Status Tobacco use date assessed 03/17/24 12/17/24 14:36 Patient Tobacco Use Status Former Tobacco user 12/17/24 14:36 e-Cigarette/Vaping Use Never Used 12/17/24 14:36 PHQ-9: PHQ-9 Score PHQ-9: Total score 0 12/17/24 14:36 Thrive Assessment: Date of Thrive Assessment Date Thrive assessed 12/12/24 12/17/24 14:36 Currently or been in a relationship where the following occur: No concerns reported Const General: no acute distress and well developed Nutritional Appearance: well nourished Orientation/consciousness: patient oriented x3 [facility] Head: Yes normocephalic and Yes atraumatic Eyes General: appearance normal, both eyes and all related structures Pupils: Equal, round and reactive pupils present EOM: EOMs intact bilaterally Resp Effort & Inspection: normal respiratory effort Auscultation: clear to auscultation bilaterally Cardio Rate: regular rate Rhythm: regular rhythm Heart sounds: S1 normal heart sound present, S2 normal heart sound present, no gallops, no murmurs and no rubs Neuro General: patient oriented x3 and gait normal Cranial nerves: Yes Equal, round and reactive pupils present Psych Affect: normal affect Coding Level of Care Code Est Pt Level 4 (54291) Diagnoses Hypertension I10 Diabetes E11.9 Elevated liver enzymes R74.8 Microalbuminuria R80.9 Assessment & Plan Assessment & Plan (1) Hypertension: Code(s): I10 - Essential (primary) hypertension Category: Medical Plan: Blood?pressure?is?controlled.??Goal?is?less?than?140/90 Continue?current?medication (2) Diabetes: Code(s): E11.9 - Type 2 diabetes mellitus without complications Category: Medical Plan: A1c?6.4%?is?good?control.??Goal?is?less?than?7.0% Patient?wants?to?discontinue?metformin?as?it?is?still?causing?diarrhea Will?discontinue?metformin?and?increase?Jardiance (3) Elevated liver enzymes: Code(s): R74.8 - Abnormal levels of other serum enzymes Category: Medical Plan: Had?advised?weight?loss?which?patient?has?achieved Liver?enzymes?now?in?normal?range Continue?weight?loss?and?good?hydration (4) Microalbuminuria: Code(s): R80.9 - Proteinuria, unspecified Category: Medical Plan: Had?started?Jardiance?for?renal?protection Microalbumin/creatinine?ratio?was?at?170s?and?now?down?to?150s Continue?good?hydration Discontinued?metformin?and?increase?Jardiance Medications: New empagliflozin (Jardiance) 25 mg PO QAM 90 days 90 tabs 3RF Discontinued metformin Discontinued Reason: Doctor's Order 250 mg (1/2 x 500 mg) PO BID 90 days 90 tabs 3RF D64.9 - Anemia, unspecified
[2024-12-17 14:39] VITALS: BP 120/68; PULSE 76; RESP 14; TEMP 37.3; O2SAT 95; BMI 34.9
== END 2024-12-17 15:28 | disposition home or self-care (01) ==
PROVIDERS: PCP Family Medicine; Visit Provider Family Medicine
DX: I10 Essential (primary) hypertension (principal); E11.9 Type 2 diabetes mellitus without complications; R74.8 Abnormal levels of other serum enzymes; R80.9 Proteinuria, unspecified

== ENCOUNTER 2025-03-05 10:02 | Outpatient (REF) | payer OTHER, SELFPAY ==
[2025-03-05 11:46] LABS: Estimated Average Glucose 137 mg/dL; Hemoglobin A1c % 6.4 % (<6.0); Total Hemoglobin (HGBA1C) 3567.4038 umol/L
[2025-03-05 12:43] LABS: Alanine Aminotransferase 43 U/L (0-40); Albumin Level 4.8 g/dL (3.5-5.0); Alkaline Phosphatase 57 U/L (39-117); Anion Gap 13 (12-20); Aspartate Amino Transferase 28 U/L (5-37); Bilirubin Total 0.6 mg/dL (0.0-1.0); Blood Urea Nitrogen 16 mg/dL (9-16); Calcium 9.8 mg/dL (8.4-10.2); Carbon Dioxide 26 mmol/L (22-29); Chloride 107 mmol/L (96-108); Estimated Glomerular Filt Rate > 60; Glucose Fasting 92 mg/dL (60-99); Sodium 142 mmol/L (135-145); Total Protein 7.8 g/dL (6.5-8.0)
[2025-03-05 14:31] LABS: Appearance Urine Clear; Color Urine Yellow; Glucose Urine UA >=1000 mg/dL (Negative); Leukocyte Esterase Urine Negative (Negative); Nitrite Urine Negative (Negative); PH 6.5 (5.0-9.0); Specific Gravity - Urine 1.025 (1.005-1.025); UMIC TRIGGER UA YES; Urine Blood Negative (Negative); Urine Ketones Negative (Negative); Urine Protein Negative (Neg-Trace)
[2025-03-05 14:35] LABS: Bacteria Urine None Seen (None Seen); Hyaline Casts Urine 0-2 /LPF (0-2); RBC Urine 0-2 /HPF (0-2); Squamous Epithelial Cell Urine 0-2 /HPF (0-2); WBC Urine 0-5 /HPF (0-5)
[2025-03-05 15:27] LABS: Creatinine Urine 89.36 mg/dL; Microalbum/Creatinine Ratio Ur 102.9 ug/mg cr (<30)
== END 2025-03-05 10:03 | disposition home or self-care (01) ==
LOC: HO.WFDLDS 10:02
PROVIDERS: Visit Provider Family Medicine
DX: Z00.00 Encounter for general adult medical examination without abnormal findings (principal); I10 Essential (primary) hypertension; R80.9 Proteinuria, unspecified; E11.9 Type 2 diabetes mellitus without complications
CPT/HCPCS: 36415; 80053; 81001; 82043; 82570; 83036

== ENCOUNTER 2025-03-23 14:15 | Outpatient (AMB) | payer OTHER, SELFPAY ==
--- NOTE | 2025-03-23 14:22 | A.OFFPC_ITS ---
Vital Signs 03/23/25 14:24 Height 5 ft 6 in Weight 216 lb 8 oz BMI 34.9 BP 120/60 Blood Pressure Location Lt brachial Position Sitting Respiration 14 Pulse 64 Pulse Source Pulse Oximeter Temp 98.5 F Temp Source Oral Pulse Oximetry (%) 95 Oxygen Delivery Method Room Air Intake Visit Reasons: f/u diabetes Intake Note: patient is scheduled for dm follow up [employer] Required: No Allergies No Known Allergies Allergy (Verified 03/23/25 14:23) Medication List - Last Reconciled 03/23/25 by Raúl Valero MD amlodipine 10 mg PO DAILY 90 days empagliflozin (Jardiance) 25 mg PO QAM 90 days lisinopril 40 mg PO DAILY 90 days omeprazole 20 mg PO DAILY 90 days pravastatin 80 mg PO DAILY 90 days sildenafil 50 mg PO DAILY PRN Tobacco use date assessed: 03/17/24 Dental Screening Dental Screen Date: 03/17/24 HPI f/u diabetes HPI Details 64 y/o male presents to f/u diabetes. Labs drawn 03/05/25. Reviewed labs with pt. A1c 6.4% which stayed the same since November. Had stopped his metformin and increased Jardiance to 25mg. Pt notes this has improved his abd. discomfort. Elevated ALT of 43. BP today 120/60, 64p. He is on amlodipine, lisinopril 40mg. HPI Comments History of Present Illness Details Documentation assistance for Raúl Valero MD, was provided by Shane Dupree,? [employer] on 03/23/2025 at 2:58 PM EST. I, Dr. Valero, have read, observed, and verified documentation. ? 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 Current occupational exposures/hazards: Yes Cognitive needs: No Hearing needs: No Vision needs: Yes (prescription glasses) Questionnaire Thrive Questionnaire Date Thrive assessed: 12/12/24 I am a: Patient What is your living situation today?: I have a steady place to live Within the past 12 months, did the food you bought not last and you didn't have the money to get more?: Never true Within the past 12 months, did you worry whether your food would run out before you got money to buy more?: Never true Do you have trouble paying for medicines?: Yes Do you have trouble getting transportation to medical appointments?: No Do you have trouble paying your heating and electricity bill?: No Do you have trouble taking care of your child, family member or friend?: No Do you have trouble with day-to-day activities such as bathing, preparing meals, shopping, managing finances, etc.?: No Are you currently unemployed and looking for a job?: No Are you interested in more education?: No Please select the resources that you would like help with: Paying for medicine Currently or been in a relationship where the following occur: No concerns reported THRIVE Score: 0 KATE-7 AMB Questionnaire KATE-7 Date KATE - 7 assessed: 03/17/24 Source: Developed by Drs. Meir Barrios, Guillermina March, Sunil Mendez and colleagues, with an educational dat from [employer]. Review of Systems Const Denies chills, Denies fatigue, Denies fever(s), Denies headache(s) and Denies weakness ENT Denies dizziness and Denies headache(s) Card Denies dyspnea Resp Denies cough, Denies dyspnea, Denies wheezing and Denies other (shortness of breath) Musc Denies numbness and Denies tingling Neuro Denies dizziness, Denies headache(s), Denies numbness, Denies tingling and Denies weakness Psych Denies anxiety and Denies depression Endo Denies fatigue Aller/Immun Denies wheezing Physical exam (Primary Care) Vital Signs: Last Vital Signs Temp 98.5 F 03/23/25 14:24 Pulse 64 03/23/25 14:24 Resp 14 03/23/25 14:24 BP 120/60 03/23/25 14:24 Pulse Ox 95 03/23/25 14:24 Oxygen Delivery Method Room Air 03/23/25 14:24 BMI result Body Mass Index 34.9 Tobacco/Smoking Status: Tobacco use Status Tobacco use date assessed 03/17/24 03/23/25 14:22 Patient Tobacco Use Status Former Tobacco user 03/23/25 14:22 e-Cigarette/Vaping Use Never Used 03/23/25 14:22 Thrive Assessment: Date of Thrive Assessment Date Thrive assessed 12/12/24 03/23/25 14:22 Currently or been in a relationship where the following occur: No concerns reported Const General: well developed; No acute distress Nutritional Appearance: well nourished Orientation/consciousness: patient oriented x3 HENMT Head: Yes normocephalic and Yes atraumatic Eyes General: appearance normal, both eyes and all related structures Pupils: Equal, round and reactive pupils present EOM: EOMs intact bilaterally Resp Effort & Inspection: normal respiratory effort Neuro General: patient oriented x3 and gait normal Cranial nerves: Yes Equal, round and reactive pupils present Psych Affect: normal affect Coding Level of Care Code Est Pt Level 4 (58932) Diagnoses Diabetes E11.9 Hypertension I10 Elevated liver enzymes R74.8 Microalbuminuria R80.9 Assessment & Plan Assessment & Plan (1) Diabetes: Code(s): E11.9 - Type 2 diabetes mellitus without complications Category: Medical Plan: A1c?remains?stable?and?steady?at?6.4%?after?stopping?metformin?and?increasing?Ja rdiance. Goal?is?less?than?7.0% Continue?Jardiance?as?prescribed Encouraged?diabetic?diet Reminded?patient?to?get?eye?exam (2) Hypertension: Code(s): I10 - Essential (primary) hypertension Category: Medical Plan: Blood?pressure?is?controlled.??Goal?is?less?than?140/90 Continue?current?medications (3) Elevated liver enzymes: Code(s): R74.8 - Abnormal levels of other serum enzymes Category: Medical Plan: Mildly?elevated?liver?enzyme?which?is?fluctuating Encouraged?good?hydration & wt loss Will?continue?to?monitor (4) Microalbuminuria: Code(s): R80.9 - Proteinuria, unspecified Category: Medical Plan: This?continues?to?improve Encouraged?good?blood?pressure?and?blood?sugar?control Will?follow
[2025-03-23 14:24] VITALS: BP 120/60; PULSE 64; RESP 14; TEMP 36.9; O2SAT 95; BMI 34.9
== END 2025-03-23 15:07 | disposition home or self-care (01) ==
LOC: HO.HMCFM 14:16
PROVIDERS: PCP Family Medicine; Visit Provider Family Medicine
DX: E11.9 Type 2 diabetes mellitus without complications (principal); I10 Essential (primary) hypertension; R74.8 Abnormal levels of other serum enzymes; R80.9 Proteinuria, unspecified

== ENCOUNTER → 2025-03-23 14:15 | Outpatient (BNVA) | payer OTHER, SELFPAY | PROVIDERS: PCP Family Medicine; Visit Provider Family Medicine | DX: Z13.89 Encounter for screening for other disorder (principal) ==

== ENCOUNTER 2025-08-27 14:59 | Outpatient (REF) | payer OTHER, SELFPAY ==
[2025-08-27 18:20] LABS: MANUAL DIFF FLAG NO
[2025-08-27 18:34] LABS: Hematocrit 43.9 % (42.0-52.0); Hemoglobin 14.2 g/dl (14.0-18.0); Imm Gran Abs Auto 0.04 X10*3/uL (0.00-0.03); Imm Gran Pct Auto 0.4 % (0.0-0.4); Lymphocytes Absolute Auto 1.8 X10*3/uL (1.2-4.9); Mean Corpuscular HGB Conc 32.3 g/dl (31.0-36.0); Mean Corpuscular Hemoglobin 28.5 pg (27.0-33.0); Mean Corpuscular Volume 88.0 fL (80.0-98.0); NRBC Abs Auto 0.000 X10*3/uL (0.0-0.012); NRBC Pct Auto 0.0 /100WBC (0.0-0.2); Platelet Count 284 X10*3/uL (160-400); Red Blood Count 4.99 X10*6/uL (4.60-5.80); White Blood Count 9.2 X10*3/uL (4.8-10.8)
[2025-08-27 18:47] LABS: Alanine Aminotransferase 35 U/L (0-40); Albumin Level 4.7 g/dL (3.5-5.0); Alkaline Phosphatase 62 U/L (39-117); Anion Gap 13 (12-20); Aspartate Amino Transferase 30 U/L (5-37); Blood Urea Nitrogen 17 mg/dL (9-16); Calcium 9.6 mg/dL (8.4-10.2); Carbon Dioxide 24 mmol/L (22-29); Chloride 108 mmol/L (96-108); Cholesterol 181 mg/dL (<200); Estimated Glomerular Filt Rate > 60; HDL Cholesterol 40 mg/dL (>40); Potassium 3.9 mmol/L (3.3-5.1); Sodium 141 mmol/L (135-145); Total Protein 7.6 g/dL (6.5-8.0); Triglycerides 258 mg/dL (<150)
== END 2025-08-27 15:00 | disposition home or self-care (01) ==
LOC: HO.WFDLDS 14:59
PROVIDERS: Visit Provider Family Medicine
DX: Z00.00 Encounter for general adult medical examination without abnormal findings (principal); Z12.5 Encounter for screening for malignant neoplasm of prostate; Z13.6 Encounter for screening for cardiovascular disorders
CPT/HCPCS: 36415; 80053; 80061; 84153; 84443; 85025

== ENCOUNTER 2025-09-06 16:05 | Outpatient (REF) | payer OTHER, SELFPAY ==
[2025-09-06 18:46] LABS: Appearance Urine Clear; Glucose Urine UA >=1000 mg/dL (Negative); PH 5.5 (5.0-9.0); Specific Gravity - Urine 1.025 (1.005-1.025); UMIC TRIGGER UACC YES
[2025-09-06 19:17] LABS: Microalbum/Creatinine Ratio Ur 135.2 ug/mg cr (<30)
--- OUTSIDE RECORDS SUMMARY | 2025-09-06 20:21 | XMS_ITS ---
Author Name [facility] Organization Unknown Care Team Organization Name Specialty Phone Email Start Date End Da te [facility] Merary Navarrete Primary Care 03/22/[address] [facility] [place], PROVIDER Primary Care 08/21/202205/14
== END 2025-09-06 16:06 | disposition home or self-care (01) ==
LOC: HO.WFDLDS 16:05
PROVIDERS: Visit Provider Family Medicine
DX: Z00.00 Encounter for general adult medical examination without abnormal findings (principal); I10 Essential (primary) hypertension
CPT/HCPCS: 81001; 82043; 82570

== ENCOUNTER 2025-09-28 13:52 | Outpatient (AMB) | payer OTHER, SELFPAY ==
--- NOTE | 2025-09-28 14:00 | MHC.PC.OV ---
Vital Signs 09/28/25 14:07 Height 5 ft 6 in Weight 216 lb 6 oz BMI 34.9 BP 112/68 Blood Pressure Location Rt brachial Position Sitting Respiration 15 Pulse 89 Pulse Source Pulse Oximeter Temp 98 F Temp Source Temporal Artery Scan Pulse Oximetry (%) 95 Oxygen Delivery Method Room Air Intake Visit Reasons: cpe Intake Note: Neil presents in the office today for his annual physical. 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: No Allergies No Known Allergies Allergy (Verified 09/28/25 14:05) Medication List - Last Reconciled 09/28/25 by Raúl Valero MD amlodipine 10 mg PO DAILY 90 days empagliflozin (Jardiance) 25 mg PO QAM 90 days lisinopril 40 mg PO DAILY 90 days omeprazole 20 mg PO DAILY 90 days pravastatin 80 mg PO DAILY 90 days sildenafil 50 mg PO DAILY PRN Tobacco use date assessed: 09/28/25 Dental Screening Dental Screen Date: 09/28/25 Did you have a dental visit in the last 12 months?: Yes Did you have a dental problem in the last 6 months where you did not have access to dental care?: No Was dental information given to patient?: Patient has dentist HPI cpe HPI Details 64 y/o male presents for a CPE with f/u labs and health maint. Labs drawn 08/27/25. Reviewed labs with pt. Triglycerides 258. TC 181. LDL 90. HDL 40. PSA 0.43. He is on pravastatin 80mg daily. Blood pressure today 112/68, 89p. He is on lisinopril 40mg, amlodipine 10mg daily. ED visit in June for x2 witnessed seizures by family and medical staff. CT head had been negative. Pt declined admission for new seizures. They had recommended him to see a neurology as an outpatient. Hx of episode of AFib. 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 1. Little interest or pleasure in doing things: not at all 2. Feeling down, depressed, or hopeless: not at all 3. Trouble falling or staying asleep, or sleeping too much: more than half the days 4. Feeling tired or having little energy: several days 5. Poor appetite or overeating: several days 6. Feeling bad about yourself - or that you are a failure or have let yourself or your family down: not at all 7. Trouble concentrating on things, such as reading the newspaper or watching television: not at all 8. Moving or speaking so slowly that other people could have noticed. Or the opposite - being so fidgety or restless that you have been moving around a lot more than usual: not at all 9. Thoughts that you would be better off or of hurting yourself in some way: not at all Total score: 4 Depression Screening Interpretation: Negative Depression Screening Done: Yes 84852 - PHQ-9 Billing: Yes Source: Developed by Drs. Meir Barrios, Guillermina March, Sunil Mendez and colleagues, with an educational dat from [employer]. Thrive Questionnaire Date Thrive assessed: 09/28/25 I am a: Patient What is your living situation today?: I have a steady place to live Within the past 12 months, did the food you bought not last and you didn't have the money to get more?: Never true Within the past 12 months, did you worry whether your food would run out before you got money to buy more?: Never true Do you have trouble paying for medicines?: Yes Do you have trouble getting transportation to medical appointments?: No Do you have trouble paying your heating and electricity bill?: No Do you have trouble taking care of your child, family member or friend?: No Do you have trouble with day-to-day activities such as bathing, preparing meals, shopping, managing finances, etc.?: No Are you currently unemployed and looking for a job?: No Are you interested in more education?: No Please select the resources that you would like help with: Paying for medicine Currently or been in a relationship where the following occur: No concerns reported THRIVE Score: 0 AUDIT C Alcohol Use Questionnaire (AUDIT-C) 1. How often do you have a drink containing alcohol?: Monthly or less 2. How many drinks containing alcohol do you have on a typical day when you are drinking?: 1 or 2 3. How often do you have six or more drinks on one occasion?: Never Total Score: 1 KATE-7 AMB Questionnaire KATE-7 Date KATE - 7 assessed: 09/28/25 Feeling nervous, anxious, or on edge: 0 = Not at all Not being able to stop or control worryin = Not at all Worrying too much about different things: 0 = Not at all Trouble relaxin = Not at all Being so restless that it is hard to sit still: 0 = Not at all Becoming easily annoyed or irritable: 1 = Several days Feeling afraid as if something awful might happen: 0 = Not at all Total KATE-7 score (0-4 normal; 5-9 mild; 10-14 moderate; 15-21 severe): 1 Source: Developed by Drs. Meir Barrios, Guillermina March, Sunil Mendez and colleagues, with an educational dat from [employer]. KATE-7 Assessment Billing KATE-7 Assessment Tool: KATE-7 Assessment 59011 Review of Systems Const Denies chills, Denies fatigue, Denies fever(s), Denies headache(s) and Denies weakness Eyes Denies change in vision ENT Denies dizziness, Denies headache(s), Denies hearing loss, Denies nasal congestion, Denies sinus pain, Denies sinus pressure and Denies sore throat Card Denies chest pain, Denies lightheadedness, Denies dyspnea and Denies other (palpitations) Resp Denies cough, Denies dyspnea and Denies wheezing GI Denies abdominal pain, Denies melena, Denies hematochezia, Denies change in bowel habits, Denies dyspepsia and Denies nausea Denies hematuria and Denies dysuria Musc Denies abnormal gait, Denies myalgias, Denies arthralgias, Denies numbness and Denies tingling Skin/Breast Denies rash, Denies unusual bruising and Denies wounds Neuro Denies abnormal gait, Denies dizziness, Denies headache(s), Denies memory loss, Denies numbness, Denies Sensory deficit (Neuro), Denies tingling and Denies weakness Psych Denies anxiety, Denies depression and Denies memory loss Endo Denies cold intolerance, Denies fatigue, Denies heat intolerance, Denies polydipsia and Denies polyuria Darrin/Lymph Denies easy bleeding and Denies easy bruising Aller/Immun Denies wheezing Physical exam (Primary Care) Vital Signs: Last Vital Signs Temp 98 F 09/28/25 14:07 Pulse 89 09/28/25 14:07 Resp 15 09/28/25 14:07 BP 112/68 09/28/25 14:07 Pulse Ox 95 09/28/25 14:07 Oxygen Delivery Method Room Air 09/28/25 14:07 BMI result Body Mass Index 34.9 Tobacco/Smoking Status: Tobacco use Status Tobacco use date assessed 09/28/25 09/28/25 14:11 Patient Tobacco Use Status Former Tobacco user 09/28/25 14:06 e-Cigarette/Vaping Use Never Used 09/28/25 14:06 PHQ-9: PHQ-9 Score PHQ-9: Total score 4 09/28/25 14:20 Depression Screening Interpretation: Negative Thrive Assessment: Date of Thrive Assessment Date Thrive assessed 09/28/25 09/28/25 14:20 Currently or been in a relationship where the following occur: No concerns reported Const General: no acute distress, well developed, alert and awake Nutritional Appearance: well nourished Orientation/consciousness: patient oriented x3 HENMT Head: Yes normocephalic and Yes atraumatic Ears: hearing grossly normal bilaterally and TM's normal bilaterally General nose exam: Normal external nose present and Normal nares present Mouth: Normal oral and palatal mucosa present and moist mucous membranes Teeth and gingiva: dentition normal Throat: Yes posterior oropharynx normal Eyes General: appearance normal, both eyes and all related structures Pupils: Equal, round and reactive pupils present and Pupil accommodation reflex normal EOM: EOMs intact bilaterally Neck Neck: Yes normal visual inspection, Yes no lymphadenopathy and Yes trachea midline Thyroid: Thyroid normal Carotids: no bruits Lymphatic: no lymphadenopathy noted Chest Chest palpation & inspection: normal inspection of the chest Resp Effort & Inspection: normal respiratory effort Auscultation: clear to auscultation bilaterally Cardio Rate: regular rate Rhythm: regular rhythm Heart sounds: S1 normal heart sound present, S2 normal heart sound present, no gallops, no murmurs and no rubs Bruits: no abdominal aortic bruits and no carotid bruits GI Palpation (GI): No Abdominal aortic bruit present, Soft to palpation, nontender, No hepatosplenomegaly present and No Rebound tenderness present Auscultation: normal bowel sounds General: Yes no CVA tenderness Back/Spine/Pelvis Back: no CVA tenderness Cervical Spine: cervical ROM normal and No Cervical spine tenderness Thoracic/Lumbar Spine: thoraco-lumbar ROM normal, No pain with thoraco-lumbar ROM, No thoracic spinal tenderness and No lumbar spinal tenderness Skin Lesions: no lesions Rashes: no rashes Trauma: no lacerations or abrasions Wounds: no wounds Nails: normal Neuro General: patient oriented x3 Cranial nerves: Yes Equal, round and reactive pupils present Cognition (Neuro): normal cognition Gait exam (Neuro): Normal gait present Motor exam (neuro): 5/5 motor strength present throughout Sensory Exam: No Sensory deficit (Neuro) Deep tendon reflexes (DTR's): Right patellar reflex intensity grade: 2+ and Left patellar reflex intensity grade: 2+ Extrem General: Yes normal to inspection and No edema Psych Appearance: grossly normal Affect: normal affect Attitude: cooperative Thought process: Normal thought process present Results AMB Hemoglobin A1c AMB Hemoglobin A1c 6.1 % Last Edit by Starr Rivera CMA on 09/28/25 14:14 Results Reviewed Results Reviewed: Laboratory Last Values Hgb A1c (Clinic) 6.1 % (4.0-6.0) H 09/28/25 14:13 Coding Level of Care Code Est Pt Level 3 (73026) Est Pt Prev Care 40-64y(37046) Diagnoses Adult general medical exam Z00.00 Hypertension I10 Hyperlipidemia E78.5 Diabetes E11.9 Screening for colon cancer Z12.11 Screening for prostate cancer Z12.5 Seizures R56.9 History of atrial fibrillation Z86.79 Additional Codes KATE-7 Assessment Billing - KATE-7 Assessment Tool: KATE-7 Assessment 74992 ([id number]) PHQ-9 - 14972 - PHQ-9 Billing: Yes ([id number]) Assessment & Plan Assessment & Plan (1) Adult general medical exam: Code(s): Z00.00 - Encounter for general adult medical examination without abnormal findings Category: Medical Plan: 64-year-old male presents for complete physical exam (2) Hypertension: Code(s): I10 - Essential (primary) hypertension Category: Medical Plan: Blood pressure is controlled. Goal is less than 140/90 Continue current medication (3) Hyperlipidemia: Code(s): E78.5 - Hyperlipidemia, unspecified Category: Medical Plan: LDL cholesterol is controlled. Goal is less than 100 HDL borderline and triglycerides slightly elevated No change to cholesterol medication Will continue to monitor (4) Diabetes: Code(s): E11.9 - Type 2 diabetes mellitus without complications Category: Medical Plan: A1c 6.1%. Good control. Goal is less than 7.0% Continue current medication Reminded patient again that he should call his eye doctor for an appointment. (5) Screening for colon cancer: Code(s): Z12.11 - Encounter for screening for malignant neoplasm of colon Category: Medical Plan: Patient thinks he had a colonoscopy at [place] Requesting report (6) Screening for prostate cancer: Code(s): Z12.5 - Encounter for screening for malignant neoplasm of prostate Category: Medical Plan: PSA was within normal range Will continue annual screening (7) Seizures: Code(s): R56.9 - Unspecified convulsions Category: Medical Plan: Patient had what was described as witnessed seizures in June and went to the ED. Patient confides that he used someone's vape and he is not sure what substance was in it He has not no further episodes He declines a referral to Neurology Avoid using unknown substances or vapes He will let me know if he has any similar symptoms or episodes. I did explain to him that we can not rule out seizure disorder without further workup but patient does not want to pursue this. (8) History of atrial fibrillation: Code(s): Z86.79 - Personal history of other diseases of the circulatory system Category: Medical Plan: Patient had mentioned history of atrial fibrillation or paroxysmal atrial fibrillation. At initial visit he sent this was still being worked up. I have received no notes from a program services planner and requested these. Appears to be in a regular rhythm. He is not anticoagulated. Patient describes wearing a Holter monitor for 3-4 weeks and was told he no longer needed to be anticoagulated. Requesting cardiology notes Orders: Orders AMB Hemoglobin A1c Today E11.9 - Type 2 diabetes mellitus without complications, R73.03 - Prediabetes
[2025-09-28 14:07] VITALS: BP 112/68; PULSE 89; RESP 15; TEMP 36.6; O2SAT 95; BMI 34.9
== END 2025-09-28 16:36 | disposition home or self-care (01) ==
LOC: HO.HMCFM 13:52
PROVIDERS: PCP Family Medicine; Visit Provider Family Medicine
DX: Z00.00 Encounter for general adult medical examination without abnormal findings (principal); E11.9 Type 2 diabetes mellitus without complications; I10 Essential (primary) hypertension; E78.5 Hyperlipidemia, unspecified; Z12.5 Encounter for screening for malignant neoplasm of prostate; Z86.79 Personal history of other diseases of the circulatory system; Z86.69 Personal history of other diseases of the nervous system and sense organs

== ENCOUNTER → 2025-09-28 13:52 | Outpatient (BNVA) | payer OTHER, SELFPAY | PROVIDERS: PCP Family Medicine; Visit Provider Family Medicine | DX: Z00.00 Encounter for general adult medical examination without abnormal findings (principal); Z12.11 Encounter for screening for malignant neoplasm of colon; Z12.5 Encounter for screening for malignant neoplasm of prostate; I10 Essential (primary) hypertension; E78.5 Hyperlipidemia, unspecified; E11.9 Type 2 diabetes mellitus without complications; R56.9 Unspecified convulsions; Z86.79 Personal history of other diseases of the circulatory system | CPT/HCPCS: 83036; 96127 ==